=== PATIENT | female | born 1960 | race American Indian/Alaskan Native ===

== ENCOUNTER 2017-06-13 13:12 | Emergency (ER) | payer MEDICAID ==
[2017-06-13 13:49] VITALS: BP 133/76
--- NOTE | 2017-06-13 15:11 | Emergency Department Report ---
ED Dysuria HPI - HPI Chief Complaint: Urogenital-Female Stated Complaint: UTI Time Seen by Provider: 06/13/17 15:10 Duration: 2 Days Location of Discomfort: Suprapubic Symptoms: Dysuria: Yes, Frequency: No, Suprapubic Pain: No, Flank Pain: No, Fever: No, Hematuria: No, Abdominal Pain: No, Previous UTI's: Yes ED Review of Systems ROS: Stated complaint: UTI Other details as noted in HPI Comment: All other systems reviewed and negative Genitourinary: dysuria ED Past Medical Hx - Past Medical History Previous Medical History?: No Hx Hypertension: Yes Hx Diabetes: Yes Additional medical history: NEUROPATHY - Surgical History Past Surgical History?: No Hx Cholecystectomy: Yes Additional Surgical History: OVARIAN CYST REMOVED - Social History Smoking Status: Never Smoker Substance Use Type: None - Medications Home Medications: Home Medications Medication Instructions Recorded Confirmed Last Taken Type Nitrofurantoin Monohyd/M-Cryst 100 mg PO BID #14 capsule 06/13/17 Unknown Rx [Macrobid 100 mg Capsule] Dysuria Exam - Exam General: Vital signs noted. No distress. Alert and acting appropriately. VSS NO FEVER NON TOXIC NO CVA TENDERNESS HX UTI END OF SUMMER AND ONE LAST Y FROM [place] Exam: Yes Moist Mucous Membranes, No CVA Tenderness, No Abdominal Tenderness, No Rigidity or Guarding ED Course Vital Signs 06/13/17 13:44 Temperature 98.2 F Pulse Rate 90 Respiratory 18 Rate Blood Pressure 133/76 O2 Sat by Pulse 100 Oximetry - Reevaluation(s) Reevaluation #1: 06/13/17 16:05 VSS NO FEVER NON TOXIC NO CVA TENDERNESS LABS AND UA NOTED MEDICATED DC HOME W DC POC ED Medical Decision Making - Lab Data Result diagrams: 06/13/17 15:13 06/13/17 15:13 - Medical Decision Making SEE NOTE - Differential Diagnosis UTI V PYLO Critical care attestation.: If time is entered above; I have spent that time in minutes in the direct care of this critically ill patient, excluding procedure time. ED Disposition Clinical Impression: UTI (urinary tract infection), Dysuria Disposition: DC-01 TO HOME OR SELFCARE Is pt being admited?: No Does the pt Need Aspirin: No Condition: Stable Instructions: Urinary Tract Infection in Women (ED) Additional Instructions: [facility] - [address] [place] [address] [facility] [employer] HYDRATE WELL CRANBERRY JUICE MAY HELP FOLLOW UP PCP- SEE BELOW WEIGHT LOSS - [facility] IN [facility] Prescriptions: Nitrofurantoin Monohyd/M-Cryst [Macrobid 100 mg Capsule] 100 mg PO BID #14 capsule Referrals: PRIMARY CARE, [Primary Care Provider] - [facility] - [facility]5 Days [facility] [Outside] - 3-5 Days [facility] [Outside] - 3-5 Days [facility] [Outside] - 3-5 Days NENA CRYSTAL MD [Staff Physician] - 3-5 Days Time of Disposition: 15:49
[2017-06-13 15:32] LABS: Eosinophils % (Auto) 1.6 % (0.0-4.3); Hematocrit 38.3 % (30.3-42.9); Hemoglobin 12.7 gm/dl (10.1-14.3); Mean Corpuscular HGB Conc 33 % (30-34); Mean Corpuscular Hemoglobin 30 pg (28-32); Mean Corpuscular Volume 89 fl (79-97); Platelet Count 385 K/mm3 (140-440); Red Cell Distribution Width 15.4 % (13.2-15.2); White Blood Count 7.8 K/mm3 (4.5-11.0)
[2017-06-13] MEDS ORDERED: MACROBID PO ONE (15:45)
[2017-06-13 15:46] LABS: Bilirubin,Urine NEG (Negative); Blood,Urine NEG (Negative); Ketones,Urine TR mg/dL (Negative); Leukocyte Esterase,Urine NEG (Negative); Mucus,Urine 1+ /HPF; Nitrite,Urine NEG (Negative); Urobilinogen,Urine < 2.0 mg/dL (<2.0)
[2017-06-13 15:47] LABS: Alanine Aminotransferase 22 units/L (7-56); Albumin 4.4 g/dL (3.9-5); Albumin/Globulin Ratio 1.3 %; Alkaline Phosphatase 62 units/L (35-129); Anion Gap 18 mmol/L; BUN/Creatinine Ratio 21; Blood Urea Nitrogen 15 mg/dL (7-17); Calcium 9.6 mg/dL (8.4-10.2); Carbon Dioxide 29 mmol/L (22-30); Chloride 99.9 mmol/L (98-107); Glucose 105 mg/dL (65-100); Potassium 3.4 mmol/L (3.6-5.0); Sodium 143 mmol/L (137-145); Total Protein 7.7 g/dL (6.3-8.2)
== END 2017-06-13 16:33 | disposition home or self-care (01) ==
LOC: ED 13:12
DX: N39.0 Urinary tract infection, site not specified (principal); I10 Essential (primary) hypertension; E11.9 Type 2 diabetes mellitus without complications; G62.9 Polyneuropathy, unspecified; Z90.49 Acquired absence of other specified parts of digestive tract
CPT/HCPCS: 36415; 80053; 81001; 85025; 99283